=== PATIENT | female | born 1945 | race Caucasian/White ===

== ENCOUNTER 2019-11-03 08:41 | Outpatient (CLI) | payer MEDICARE, SELFPAY ==
[2019-11-03 09:06] LABS: Basophils Absolute Auto 0.1 K/mm3 (0.0-0.1); Eosinophils Absolute Auto 0.3 K/mm3 (0-0.3); Eosinophils Percent Auto 5.2 % (0-4.4); Hematocrit 45.8 % (37.0-47.0); Hemoglobin 14.7 g/dL (12.0-15.0); Immature Granulocyte Absolute 0.02 K/mm3 (0.00-0.031); Immature Granulocyte Percent A 0.3 % (0-0.5); Lymphocytes Percent Auto 24.3 % (18.3-44.2); Mean Corpuscular HGB Conc 32.1 g/dl (32-36); Mean Corpuscular Hemoglobin 28.5 pg (26-34); Mean Corpuscular Volume 88.8 fl (80-100); Mean Platelet Volume 11.4 fl (7.4-10.4); Monocytes Absolute Auto 0.6 K/mm3 (0.1-0.6); Monocytes Percent Auto 9.7 % (2.6-8.5); Neutrophils Absolute Auto 3.4 K/mm3 (1.3-6.7); Neutrophils Percent Auto 59.5 % (45.5-73.1); Platelet Count Result 169 k/mm3 (150-375); Red Blood Count 5.16 M/mm3 (4.2-5.4); Red Cell Distribution Width 13.4 % (11.5-14.5); White Blood Count 5.8 K/mm3 (4.5-10.0)
[2019-11-03 09:18] LABS: Alanine Aminotransferase 18 U/L (4-35); Albumin Level 4.2 g/dL (3.5-5.1); Alkaline Phosphatase 93 U/L (38-126); Aspartate Amino Transferase 27 U/L (14-36); Bilirubin,Total 0.3 mg/dL (0.2-1.3); Blood Urea Nitrogen 13 mg/dL (7-17); Calcium 9.7 mg/dL (8.4-10.2); Carbon Dioxide 30 mmol/L (22-30); Chloride 106 mmol/L (98-107); Estimated Glomerular Filt Rate > 60; Glucose 87 mg/dL (65-105); Potassium 4.2 mmol/L (3.4-5.0); Sodium 140 mmol/L (137-145)
== END 2019-11-03 08:42 | disposition home or self-care (01) ==
PROVIDERS: Visit Provider Internal Medicine Cardiovascular Disease
DX: E78.00 Pure hypercholesterolemia, unspecified (principal)
CPT/HCPCS: 36415; 80053; 84443; 85025

== ENCOUNTER 2022-04-24 12:51 | Emergency (ER) | payer MEDICARE, SELFPAY ==
[2022-04-24 13:01] VITALS: BP 113/68; PULSE 75; RESP 18; TEMP 36.2; O2SAT 98
--- NOTE | 2022-04-24 14:45 | ED.SKABFB ---
HPI - Skin/Abscess/Foreign Bdy General Chief complaint: Skin/Abscess/Foreign Body Stated complaint: Rash Bilateral Hands and Wrists Source: patient Mode of arrival: ambulatory History of Present Illness HPI narrative: This is a 76-year-old female who presented to our urgent care with complaints of a bilateral hand rash. According to patient she went to get her flu shot on Friday and developed a rash on Friday. Patient notes that she developed a rash on the palms and back of her hands that extended to her wrist she notes that she has scratched both palms of her hand which seem to cause a infection. The patient denies SOB, CP, palpitation, extremity numbness, lightheadedness, dizziness, constipation, diarrhea, chills, or fever. She did not use anything at home to relieve her symptoms Related Data Allergies Allergy/AdvReac Type Severity Reaction Status Date / Time No Known Allergies Allergy Verified 04/24/22 13:34 Review of Systems Review of Systems: A 14 organ system Review of Systems was performed and pertinent positives included in the HPI, otherwise remaining ROS is negative. Exam Narrative: GENERAL: This is a well-nourished, well-developed patient, in no apparent distress. HEAD: normocephalic, atraumatic. EYES: PERRL. Sclera clear/white. Vision is grossly intact. EARS: External ears normal, auditory canals clear and without drainage, TMs normal without perforation. Hearing grossly intact. NOSE: External nose normal with no obvious nasal discharge, nares without redness, no rhinorrhea. THROAT: Mucous membranes moist, posterior pharynx clear. NECK: Neck supple, non-tender without lymphadenopathy, masses or thyromegaly. CARDIOVASCULAR: Regular rate and rhythm without murmurs, gallops, or rubs. RESPIRATORY: Clear to auscultation. Breath sounds equal bilaterally. No wheezes, rales, or rhonchi. GASTROINTESTINAL: Abdomen soft, non-tender, nondistended. Bowel sounds are active. No hepato-splenomegaly, or palpable masses. No guarding. SKIN: Patient has bilateral hand rash on palms and top hands. She has some redness and edema with crusty and pustus lesions in the palm of her hand NEURO: awake, alert, and oriented to person, place and time. There were no obvious focal neurologic abnormalities. EXTREMITIES: Normal range of motion. No edema. No calf tenderness. Course Course Emergency Course: Patient will be discharged with doxycycline to treat her cellulitis along with hydrocortisone and steroids for her contact dermatitis Level of Care: Express Care Visit Vital Signs Vital signs: Vital Signs Temperature 97.1 F L 04/24/22 13:01 Pulse Rate 75 04/24/22 13:01 Respiratory Rate 18 04/24/22 13:01 Blood Pressure 113/68 04/24/22 13:01 Pulse Oximetry 98 04/24/22 13:01 Oxygen Delivery Room Air 04/24/22 13:01 Temperature 97.1 F L 04/24/22 13:01 Pulse Rate 75 04/24/22 13:01 Respiratory Rate 18 04/24/22 13:01 Blood Pressure 113/68 04/24/22 13:01 Pulse Oximetry 98 04/24/22 13:01 Oxygen Delivery Room Air 04/24/22 13:01 MDM - Skin/Abscess/Foreign Bdy Differential Diagnosis Differential diagnosis: Likely abscess of skin or subcutaneous tissue, cellulitis and contact dermatitis Discharge Plan Discharge Clinical Impression: Cellulitis, Contact dermatitis Patient Disposition: Home, Self-Care Condition: Stable Instructions: Antibiotic Form, Contact Dermatitis (DC), Cellulitis (ED) Additional Instructions: 1. Follow up with your provider within 1-2 weeks 2. Take prescription medication as ordered Notify your provider of any signs and symptoms of infection: Fever Foul Odor Discharge Heat at the Site: Increase in Pain: Pus Redness and Swelling Take all medication as prescribed Wash your hands with soap water and avoid scratching them. Prescriptions: New methylprednisolone [Medrol (Mc)] 4 mg tablets,dose pack See Rx Instructions .ROUTE .COMPLEX Qty
== END 2022-04-24 14:45 | disposition home or self-care (01) ==
PROVIDERS: Emergency Provider Nurse Practitioner
DX: L03.114 Cellulitis of left upper limb (principal); L03.113 Cellulitis of right upper limb; L25.9 Unspecified contact dermatitis, unspecified cause
CPT/HCPCS: 99213; G0463

== ENCOUNTER → 2022-10-25 13:17 | Outpatient (CLI) | payer MEDICARE, SELFPAY ==
--- NOTE | ~2022-10-25 | MM_ITS ---
EXAMINATION: MM screening nabil BI w kurtis HISTORY: Screening mammogram, family history of breast cancer in her mother. TECHNIQUE: Craniocaudal and mediolateral oblique 3-D tomosynthesis images were obtained and synthetic 2-D images were generated. CAD analysis was submitted and interpreted. COMPARISON: 04/25/2007 BREAST PARENCHYMAL COMPOSITION:The breasts are heterogeneously dense, which may obscure small masses. FINDINGS: No suspicious mass, calcification, or architectural distortion are identified in either beth ast to suggest malignancy. There has been no suspicious interval change. IMPRESSION: No mammographic evidence of malignancy. Recommend routine screening mammography in one year. BI-RADS Category 1: Negative Reviewed, dictated and finalized at location M.
== END ==
PROVIDERS: PCP Obstetrics & Gynecology; Visit Provider Obstetrics & Gynecology
DX: Z12.31 Encounter for screening mammogram for malignant neoplasm of breast (principal)
CPT/HCPCS: 77063; 77067

== ENCOUNTER 2023-05-01 10:31 | Outpatient (CLI) | payer MEDICARE, SELFPAY ==
--- NOTE | ~2023-05-01 | XR_ITS ---
XR chest 2V DATE: 05/01/2023 10:56 INDICATION: Cough TECHNIQUE: AP and lateral views COMPARISON: None FINDINGS: Plate and screws are noted along the right humeral shaft. There is osteopenia. Normal heart size. Aortic arch and abdominal aortic calcification. No hilar or mediastinal enlargement. No pleural effusion or pneumothorax. Mild bilateral apical cappi ng. No pulmonary infiltrate or consolidation. There are increased interstitial markings including Vaishnavi B-lines in the mid and lower lung zones wh ich may be chronic versus pulmonary interstitial edema or less likely interstitial pneumonitis. No pr ior radiographs are available for comparison. Clinical correlation is advised. IMPRESSION: Increased interstitial markings in the mid and lower lung zones including Vaishnavi B-lines; differential diagnosis includes pulmonary interstitial edema or fibrosis, less likely interstitial p neumonitis Reviewed, dictated and finalized at location L. IMPRESSION: Increased interstitial markings in the mid and lower lung zones inc luding Vaishnavi B-lines; differential diagnosis includes pulmonary interstitial e ese or fibrosis, less likely interstitial pneumonitis
== END 2023-05-01 10:32 | disposition home or self-care (01) ==
PROVIDERS: PCP Family Medicine; Visit Provider Family Medicine
DX: R05.9 Cough, unspecified (principal)
CPT/HCPCS: 71046

== ENCOUNTER 2024-03-29 05:35 | Emergency (ER) | payer MEDICARE, SELFPAY ==
--- NOTE | ~2024-03-29 | CT_ITS ---
CT Facial Bones Clinical Indication: Left preauricular soft tissue mass Technique: Contiguous axial scans were obtained through the facial bones followed by coronal and sagi ttal reconstructions. Dose reduction technique was used on this scan by utilizing automated exposure control and iterative reconstruction technique. The dose-length product (DLP) was 294.67 mGy-cm. Findings: No fractures are identified. There is mucosal thickening of bilateral sphenoid sinuses. The remaining visualized paranasal sinuses are clear. Intraorbital soft tissues appear normal. Poor dent ition. There is a 3.4 x 2.9 x 3.6 cm mass within the superficial portion of the left parotid gland. Impression: 3.4 x 2.9 x 3.6 cm left parotid gland mass. This is compatible with a neoplastic lesion. Pre and post contrast MR imaging should be considered for further imaging evaluation, though many parotid lesions can have overlapping imaging characteristics. Tissue sampling should also be considered to establish a histologic diagnosis, as both benign and malignant lesions are within the differential diagnosis. Reviewed, dictated and finalized at [facility]. Impression: 3.4 x 2.9 x 3.6 cm left parotid gland mass. This is compatible with a neoplasti c lesion. Pre and postcontrast MR imaging should be considered for further imag ing evaluation, though many parotid lesions can have overlapping imaging charac teristics. Tissue sampling should also be considered to establish a histologic diagnosis, as both benign and malignant lesions are within the differential jose miguel gnosis.
[2024-03-29 06:01] VITALS: BP 105/62; PULSE 77; RESP 18; TEMP 36.6; O2SAT 93
--- NOTE | 2024-03-29 06:06 | PC.NURSE ---
Patient taken to CT at this time.
--- NOTE | 2024-03-29 06:07 | ED.EAR ---
HPI - Ear Problem General Chief complaint: Ear Stated complaint: left ear stopped up for two weeks; swollen Time Seen by Provider: 03/29/24 05:42 History of Present Illness HPI Narrative: 78-year-old female presenting for left ear discomfort. She states for last 2 weeks she has been having what feels like a clogged ear with some difficulty hearing. She has tried some ear drops and Augmentin that she had home from a relative's recent infection but did not alleviate any of her symptoms. She has noticed a masslike projection involving the left side of her face in front of the ear but no difficulty swallowing, chewing, pain with palpation, drainage or overlying skin changes. His soft and nontender to palpation. Denies any headache, vision changes, fever, chills, jaw pain, dental pain, injuries or trauma. Was otherwise in her normal state of health. Related Data Home Medications Medication Instructions Recorded Confirmed No Home Medications 12/26/23 03/29/24 Allergies Allergy/AdvReac Type Severity Reaction Status Date / Time No Known Allergies Allergy Verified 03/29/24 06:09 Review of Systems Review of Systems: As reviewed above [facility] Past Medical History Medical History Cellulitis and abscess of hand Humerus lesion, right Tobacco user Surgical History Surgical History S/P ORIF (open reduction internal fixation) fracture R Humerus 2014 Family History Family History Mother Breast cancer Social History Social History Social History: Smoking packs per day: 0.25 Smoking cigarettes per day: 5.0 Years smoked: 60 Smoking pack-years: 15.00 Smoking status: Current every day smoker Tobacco type: cigarettes Alcohol intake: never Substance use: never Substance use type: does not use Lack of Transportation: No Lack of Food: Never True Current Housing: I Have Housing Concerned About Future Housing: No Difficulty Paying Gas/Electric Bills: No Difficulty Paying for Meds: No Currently Unemployed: YES Education: High School Diploma/GED Difficulty w/ Childcare or Family Care: No Living arrangements: with family Occupation/Education: retired Gender identity (if verbalized by the patient): Female Sexual Orientation (if Verbalized by the Patient): Straight or Heterosexual Exam Narrative: GENERAL: [Well-appearing, well-nourished, and in no acute distress.] HEAD: [Normocephalic, atraumatic.] EYES: [PERRLA and EOMI.] ENT: Nares clear, no rhinorrhea or epistaxis. Mucous membranes moist. External auditory canals in place, no proptosis, tympanic membranes clear and visualized bilateral without any effusions. In front of the left auricle there appears to be a 3 x 3 cm soft rubbery mobile mass that is not tender to palpation without any dimpling of the skin overlying skin changes. NECK: Supple. CHEST: [Clear to auscultation. No respiratory distress.] HEART: [Regular rate and rhythm]. No murmur heard. [Normal peripheral pulses.] ABDOMEN: [Soft, nondistended], [nontender], [No rigidity or guarding] EXTREMITIES: Normal range of motion. [No edema.] SKIN: Warm, dry, no rash. NEURO: [No focal deficits]. Alert and oriented [x3.] PSYCH: [Normal mood and affect.] Course Vital Signs Vital signs: Vital Signs Temperature 36.6 C 03/29/24 06:01 Pulse Rate 77 03/29/24 06:01 Respiratory Rate 18 03/29/24 06:01 Blood Pressure 105/62 03/29/24 06:01 Pulse Oximetry 93 03/29/24 06:01 Oxygen Delivery Room Air 03/29/24 06:01 Temperature 36.6 C 03/29/24 06:01 Pulse Rate 77 03/29/24 06:01 Respiratory Rate 18 03/29/24 06:01 Blood Pressure 105/62 03/29/24 06:01 Pulse Oximetry 93 03/29/24 06:01 Oxygen Delivery Room Air 03/29/24 06:01 Medica
== END 2024-03-29 07:01 | disposition home or self-care (01) ==
PROVIDERS: Emergency Provider Student in an Organized Health Care Education/Training Program; PCP Nurse Practitioner
DX: K11.8 Other diseases of salivary glands (principal); F17.210 Nicotine dependence, cigarettes, uncomplicated
CPT/HCPCS: 70486; 99284

== ENCOUNTER 2024-04-22 07:43 | Outpatient (CLI) | payer MEDICARE, SELFPAY ==
--- NOTE | ~2024-04-22 | MR_ITS ---
EXAMINATION: MR orbits face neck wo/w con DATE: 04/22/2024 08:33 INDICATION: Other diseases of salivary glands. Left cheek soft tissue swelling. TECHNIQUE: Magnetic resonance imaging (MRI) of the face was performed without and with 13 mL MultiHan ce intravenous contrast. COMPARISON: CT maxillofacial 03/29/24 FINDINGS: In the superficial left parotid gland, there is a 3.3 x 2.7 cm mixed cystic and solid mass. There are likely changes of ocular lens replacement surgeries. There is mucosal thickening in the pa ranasal sinuses. IMPRESSION: 1. 3.3 cm left parotid mass. The differential diagnosis includes benign mixed tumor, Warthin tumor, a nd less likely primary malignancy or opal metastatic disease. Ultrasound-guided fine-needle aspirati on is recommended. Reviewed, dictated and finalized at location A. IMPRESSION: 1. 3.3 cm left parotid mass. The differential diagnosis includes benign mixed t umor, Warthin tumor, and less likely primary malignancy or oapl metastatic dis ease. Ultrasound-guided fine-needle aspiration is recommended.
== END 2024-04-22 07:44 | disposition home or self-care (01) ==
PROVIDERS: PCP Nurse Practitioner; Visit Provider Nurse Practitioner
DX: K11.8 Other diseases of salivary glands (principal)
CPT/HCPCS: 70543; A9577

== ENCOUNTER 2024-04-29 10:23 | Outpatient (CLI) | payer MEDICARE, SELFPAY ==
--- NOTE | 2024-04-29 10:30 | ECG_ITS ---
Test Date: 2024-04-29 10:44:52 Measurements Intervals [place] Rate: 69 P: 73 UT: 144 QRS: -32 QRSD: 88 T: 46 QT: 371 QTc: 400 Interpretive Statements SINUS RHYTHM MARKED LEFT AXIS DEVIATION [QRS AXIS < -30] LOW QRS VOLTAGE IN PRECORDIAL LEADS [QRS DEFLECTION < 1.0 mV IN CHEST LEADS] No previous ECG available for comparison Electronically Signed On 04-29-2024 11:56:44 CDT by Paul Brice M.D.
== END 2024-04-29 10:24 | disposition home or self-care (01) ==
LOC: ANHSURGERY 10:29
PROVIDERS: PCP Nurse Practitioner; Visit Provider Otolaryngology
DX: Z01.818 Encounter for other preprocedural examination (principal); Z72.0 Tobacco use; R94.31 Abnormal electrocardiogram [ECG] [EKG]
CPT/HCPCS: 93005

== ENCOUNTER 2024-05-03 01:59 | Day surgery (SDC) | payer MEDICARE, SELFPAY ==
--- NOTE | 2024-04-28 08:42 | PC.NURSE ---
Report to the Outpatient Waiting Room, entrance under the green pavilion located off [facility], at time _7:30 AM on date 05/03/24 . Planned Procedure Time: 9:30 AM .? Time changes happen often and if your time is changed the preop area will call you the afternoon before. - You and your visitor will be asked to self-screen and do not enter if you have any COVID symptoms. Please call surgeon if you need to reschedule. - A mask is optional within the hospital at this time. Patients may have clear liquids (water, carbonated beverages, clear teas, apple juice) until 3 hours prior to surgery( 6 :30 AM) with a maximum of 20 ounces. - No food from midnight until time of surgery and no smoking - Infants may have breast milk until 4 hours before surgery, formula 6 hours prior to surgery. - Children will be allowed to drink immediately following surgery.? If applicable, please bring a bottle or sippy cup to assist with drinking. Juice, water, soda, and popsicles are readily available.? For infants on formula, please bring formula the day of surgery.? Pacifiers are allowed. Take only the following medications with a SIP of water on the morning of surgery: NONE DO NOT STOP ANY OF YOUR OTHER PRESCRIPTION MEDICATIONS PRIOR TO SURGERY EXCEPT THE FOLLOWING Medications to discontinue per physician NONE Please no make-up, nail lao, hairspray, perfume, deodorant, or body powder the day of surgery.? No jewelry (including any body piercings) or valuables the day of surgery, leave them at home.? Please take a shower or bath the night before, or the morning of, surgery with an antibacterial soap.? Wear comfortable, loose fitting clothing.? Children are encouraged to wear pajamas. - Jewelry must be removed prior to entering the operating room.? Rings and piercings that are not removed may be cut off. - The hospital will not accept responsibility for valuables.? - Please leave all valuables, including medications, at home the day of surgery. If you are going home after surgery, a licensed tour bus driver must drive you home.? - NO public transportation without another adult if you receive anesthesia. - We recommend that an adult stay with you for 24 hours following discharge. - We also recommend that you do not drive, make important decision, drink alcoholic beverages, or take any drugs that were not prescribed by your health care provider for at least 24 hours after your discharge time. Follow any additional instructions given to you from your surgeon. Telephone instructions given to _PATIENT and asked if any additional questions and then verbalized understanding. Patient advised to call surgeon office or pre surgery nurse liaison [phone] if any additional questions.
[2024-04-28 08:51] VITALS: BMI 22.8
[2024-05-03] VITALS (14 sets, daily range): BP systolic 104–141; BP diastolic 62–83; PULSE 64–80; RESP 12–18; TEMP 36.4–36.8; O2SAT 91–100
--- NOTE | 2024-05-03 07:13 | WPDHPUPDATE1 ---
History and Physical Update Update Date/Time: 05/03/24 07:13 History and Physical has been reviewed, including an updated exam of the patient. There are NO changes in the patient's condition. Risks, benefits, and alternatives have been discussed and questions answered. Patient agrees to proceed with procedure.
--- NOTE | 2024-05-03 08:38 | P.OP_ITS ---
Procedure Note - Detailed Date of Procedure 05/03/24 Pre-op Diagnosis left parotid mass Post-op Diagnosis Same Procedure Performed Left superficial parotidectomy, facial nerve monitoring Surgeon Denny Maria MD Anesthesia General Indications Left parotid mass Findings 3-4cm left parotid mass, encapsulated, fully removed. Facial nerve identified in all branches and preserved, stimulated at end of case. 10Fr drain placed. Description of Procedure After informed consent was obtained the time out procedure was performed the patient was brought to the operating room placed on the operating table in the supine position. The patient was placed under general endotracheal anesthesia. A modified Julian incision was marked out in the patient's left preauricular crease. 1% lidocaine with one 100,000 epinephrine was injected into the marked incision. The patient was prepped and draped in the usual fashion. A #15 scalpel was used to make the skin incision. This was carried down to the level of the greater auricular nerve.this nerve was dissected superiorly up to the patient's earlobe. The preauricular incision was also carried down to the level of the parotid fascia. The underlying tumor was easily palpated. Next the preauricular incision was carried down along the tragal cartilage and the tragal pointer using a fine dissector and bipolar electrocautery. The greater auricular nerve was sacrificed.? The external jugular vein was preserved. The posterior belly of the digastric muscle was identified after retracting the sternocleidomastoid muscle laterally. The main trunk of the facial nerve was identified in its normal anatomic position and preserved. The nerve intraoperative monitor was utilized throughout the case and the facial nerve was confirmed using the prass probe.? Next the facial nerve was dissected laterally to the pes and the upper lobe and lower divisions were identified. The superficial parotid gland containing the tumor was dissected away from the lateral portion of the facial nerve. Once the specimen was passed off the field the wound bed was carefully irrigated using warm saline solution, there is no evidence of any significant bleeding. The upper and lower divisions of the facial nerve were then stimulated at 1 milliamp, and found to have greater than 1000 microvolts of stimulation. The wound was then closed in layers over a? Brenton drain using 3-0 Vicryl 4-0 Monocry l, and 4-0 and? 5-0 Prolene suture. A fluff dressing along with a jaw bra were then placed on the patient. The Brenton drain was noted to be holding suction. The patient was then awakened from general anesthesia, extubated and transferred to recovery in stable condition. Estimated Blood Loss 20 Drains Yes Packing No Pathology Yes (left parotid mass) Complications No immediate complications Condition Stable Disposition PACU
--- NOTE | 2024-05-03 08:47 | P.PNAN_ITS ---
Anes - Initial Pre Proc Eval Procedure: Operation Date: 05/03/24 09:30 Proposed Procedures p Left Superficial Parotidectomy - Denny Maria MD Date/Time: 05/03/24 08:47 Surgeon: Denny Maria MD Pre Op Diagnosis: left parotid mass Patient Data Age: 78 Gender: F Height: 1.65 m Weight: 60.7 kg Last Vital Signs Temp 98.2 F 05/03/24 07:25 Pulse 77 05/03/24 07:25 Resp 18 05/03/24 07:25 BP 104/62 05/03/24 07:25 Pulse Ox 96 05/03/24 07:25 O2 Del Method Room Air 05/03/24 07:25 Allergies Allergy/AdvReac Type Severity Reaction Status Date / Time No Known Allergies Allergy Verified 04/28/24 08:35 Home Medications Medication Instructions Recorded Confirmed Type No Home Medications 12/26/23 04/28/24 History Patient hx anesthesia problems: none Family hx anesthesia problems: none Results Review: All pre-operative results and documents have been reviewed as part of the pre- operative evaluation. [facility] Past Medical History Medical History Cellulitis and abscess of hand Humerus lesion, right Tobacco user Surgical History Surgical History S/P ORIF (open reduction internal fixation) fracture R Humerus 2014 Family History Family History Mother Breast cancer Social History Social History Social History: Years smoked: 60 Smoking status: Current every day smoker Tobacco type: cigarettes Alcohol intake: never Substance use: never Substance use type: does not use Lack of Transportation: No Lack of Food: Never True Current Housing: I Have Housing Concerned About Future Housing: No Difficulty Paying Gas/Electric Bills: No Difficulty Paying for Meds: No Currently Unemployed: YES Education: High School Diploma/GED Difficulty w/ Childcare or Family Care: No Living arrangements: with family Occupation/Education: retired Gender identity (if verbalized by the patient): Female Sexual Orientation (if Verbalized by the Patient): Straight or Heterosexual Spiritual care concerns: No Anes - Eval Final PreProcedure Day of Procedure 05/03/24 08:47 Patient weight: normal Heart: regular rate and rhythm Lungs: decreased breath sounds Airway: Mallampati scale class II Last oral intake: >/= 8 hours ASA classification: III Emergent: no Anesthetic plan: proceed Anesthesia type and monitoring: general GIVS and standard monitoring Results Review: All pre-operative results and documents have been reviewed as part of the pre- operative evaluation. Informed Consent: The patient's anesthetic plan and its attendant risks and benefits were discussed with the patient/family/POA. Questions were solicited and answers provided to the satisfaction of the patient/family/POA.
[2024-05-03] MEDS: ceFAZolin 2 GM/D5W 50 ML 2 GM/50 ML BAG IVPB (08:58)
[2024-05-03] MEDS: LACTATED RINGERS 1,000 ML 30 ML IV CONT ×2 (09:10→11:35)
[2024-05-03] MEDS: LIDO 1%/EPINEPHRINE 1:100,000 50 ML VIAL INFILTRATE (09:49)
[2024-05-03] MEDS: MUPIROCIN 2% OINT 22 GM TUBE 1 APPLIC TOPICAL (09:51)
[2024-05-03] MEDS: fentaNYL CITRATE INJ (*CRX) 100 MCG/2 ML VIAL 25 MCG IV PUSH ×2 (11:54→11:57)
== END 2024-05-03 15:12 | disposition home or self-care (01) ==
PROVIDERS: PCP Nurse Practitioner; Visit Provider Otolaryngology
PROC: (CPT 42410; principal; 2024-05-03 09:30)
DX: D11.0 Benign neoplasm of parotid gland (principal); F17.210 Nicotine dependence, cigarettes, uncomplicated; Z98.890 Other specified postprocedural states; Z80.3 Family history of malignant neoplasm of breast
CPT/HCPCS: 42415; 88305; A9270; J0171; J0330; J0690; J1100; J2003; J2004; J2371; J2405; J2704; J3010; J7120